=== PATIENT | female | born 1995 | race Caucasian/White ===

== ENCOUNTER 2017-01-19 13:30 | Emergency (ER) | payer OTHER ==
[~2017-01-19] VITALS: Ht 160 cm; Wt 49.8 kg
[~2017-01-19 13:30] MED LIST: PRLSR20 PO
[2017-01-19 13:35] VITALS: TEMP 36.9; Ht 160 cm; Wt 49.8 kg
[2017-01-19 14:36] LABS: BASO % 0.4 %; BASO ABS # 0.02 K/uL (0-0.2); COMPLETE YES; EOS % 1.8 %; HEMATOCRIT 40.8 % (37-47); IG% 0.2 %; LYMPH % 31.5 %; LYMPH ABS # 1.77 K/uL (1.2-3.4); MEAN CELL VOLUME 86.1 fL (80-100); MEAN CORPUSCULAR HEMOGLOBIN 29.7 pg (25-34); MEAN CORPUSCULAR HGB CONC 34.6 g/dl (32-36); MEAN PLATELET VOLUME 10.3 fL (7.4-10.4); MONO % 9.6 %; NEUT % 56.5 %; PLATELET COUNT 220 K/uL (130-400); RED BLOOD COUNT 4.74 M/uL (4.2-5.4); WHITE BLOOD COUNT 5.62 K/uL (4.8-10.8)
[2017-01-19] MEDS ORDERED: KETOROLAC TROMETHAMINE 30 MG/ML VIAL IV STA (14:44)
[2017-01-19 14:49] LABS: BUN/CREATININE RATIO 11.8 (10-20); CALCIUM 9.2 mg/dl (8.5-10.1); CREATININE 0.7 mg/dl (0.60-1.20); POTASSIUM 3.4 mmol/L (3.5-5.1)
[2017-01-19 14:52] LABS: ALB/GLOB RATIO 1.3 (0.9-2)
[2017-01-19 15:02] LABS: URINE APPEARANCE CLEAR (CLEAR); URINE BILIRUBIN NEG (NEG); URINE COLOR YELLOW; URINE NITRITE NEG (NEG); URINE PH 6.5 (4.5-7.5); URINE SPECIFIC GRAVITY 1.003 (1.000-1.030); UROBILINOGEN NEG (NEG); ZZUR CULT IF INDIC CLEAN CATCH NO
[2017-01-19 15:20] LABS: MANUAL MICROSCOPIC REQUIRED? NO; REVIEW REQ? NO
--- NOTE | 2017-01-19 16:21 | DIAGNOSTIC IMAGING REPORT ---
CT SCAN OF THE ABDOMEN AND PELVIS WITHOUT CONTRAST CLINICAL HISTORY: Left flank pain COMPARISON STUDY: No previous studies for comparison. TECHNIQUE: CT scan of the abdomen and pelvis was performed from the lung bases to the proximal femurs. Images are reviewed in the axial, sagittal, and coronal planes. IV contrast was not administered for this examination. CT DOSE: FINDINGS: Lower chest: The heart is normal in size and configuration, without pericardial effusion. The lung bases and pleural spaces are clear. Liver: The unenhanced liver is normal in size, contour, and attenuation. There is no intrahepatic biliary ductal dilatation. Gallbladder: Unremarkable. Spleen: Normal in size and attenuation. Pancreas: Unremarkable. Adrenal glands: Unremarkable. Kidneys: No renal, ureteral, or bladder calculi are visualized. Bowel: Evaluation the bowel is limited given the lack of intravenous and oral contrast and the relative possibility of intra-abdominal fat. There is mild fecal retention. There are no transition zones indicate bowel obstruction. There are no findings to indicate acute diverticulitis. There are no findings to indicate acute appendicitis. Peritoneum: There is no intraperitoneal free air or abdominal ascites. Vasculature: The abdominal aorta is normal in course and caliber. Adenopathy: None. Pelvic viscera: The bladder, and pelvic viscera are unremarkable. Skeletal structures: No destructive osseous lesions are seen. IMPRESSION: 1. No acute abdominal or pelvic findings. 2. No renal, ureteral, or bladder calculi identified. 3. No evidence of bowel obstruction. No evidence of free air Electronically signed by: Sampson Brown M.D. 01/19/2017 4:19 PM Dictated Date/Time: 01/19/2017 4:16 PM
--- NOTE | 2017-01-19 16:26 | DIAGNOSTIC IMAGING REPORT ---
CT LUMBAR SPINE WITHOUT CT DOSE: 356.20 mGy.cm CLINICAL HISTORY: Severe back pain. TECHNIQUE: Helical images were acquired in transverse plane. Reformatted sagittal and coronal images were reviewed. CONTRAST: No contrast was administered COMPARISON STUDY: Conventional radiographic study dated 05/11/2016 FINDINGS: L1-2 level: There is no evidence of significant disc bulge or focal herniation. There is no evidence of spinal or foraminal stenosis. L2-3 level: There is no evidence of significant disc bulge or focal herniation. There is no evidence of spinal or foraminal stenosis. L3-4 level: There is no evidence of significant disc bulge or focal herniation. There is no evidence of spinal or foraminal stenosis. L4-5 level: There is a mild circumferential disc bulge. There is mild spinal canal narrowing. L5-S1 level: There is no evidence of significant disc bulge or focal herniation. There is no evidence of spinal or foraminal stenosis. IMPRESSION: 1. No fractures or subluxations identified 2. No destructive lesions are visualized 3. Mild disc bulge at the L4-5 level with mild spinal canal narrowing Electronically signed by: Sampson Brown M.D. 01/19/2017 4:24 PM Dictated Date/Time: 01/19/2017 4:21 PM
[2017-01-19 17:15] VITALS: BP 128/77; PULSE 86; O2SAT 100
--- NOTE | 2017-01-19 19:19 | EMERGENCY ROOM VISIT NOTE ---
History Report prepared by Yunieribnataliia: Allyssa Valdovinos Under the Supervision of: Dr. Charles David M.D. First contact with patient: 14:34 Chief Complaint: ABDOMINAL PAIN Stated Complaint: ABDOMINAL PAIN AND LOSS OF BLADDER FUNCTION Nursing Triage Summary: Patient states is having 5/10 left sided flank pain. Patient has had back pain since Saturday that started as a muscle pain and became a sharp left flank pain at this time. Patient denies N/V/D. Patient has had not BM or void well for at least today. Patient states has been able to void in small amounts. Patient denies hx of kidney stones. Patient states gets pressure with urination, not painful. Patient states her appetite has decreased some. History of Present Illness The patient is a 21 year old female who presents to the Emergency Room with complaints of persistent left sided flank pain for the past day. She reports she started experiencing right back pain a few days ago, and it has since traveled into her left flank. She rates her discomfort as a 5/10 and describes the pain as sometimes "stabbing". Movement worsens her pain. 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 She denies any recent injuries or heavy lifting. She denies any fever, nausea, vomiting or diarrhea. She notes her last bowel movement was 2 days ago and states this is abnormal for her. She has been eating normally, but has not felt the need to move her bowels. She also complains of urinary symptoms stating she feels the need to empty her bladder, but she has "to really force the urine out" when she goes. She denies any gross hematuria. She denies any history of kidney stones. She is currently on her menstrual period and denies any abnormal vaginal discharge. The patient also complains of a feeling of "tingling" in both legs, mostly in her thigh area. She describes her legs as feeling like they "could go to sleep, but they're not quite there yet". She denies any loss of bladder or bowel function. She denies any numbness or tingling in her pelvic area. She has not noticed any changes in how she walks or moves. She can still feel normal sensation in both legs. Source of History: patient Onset: 1 day [employer] OFFIC[employer] Position: back (left sided flank) Symptom Intensity: 5/10 Quality: stabbing Timing: other (persistent) Modifying Factors (Worsening): movement Associated Symptoms: + numbness ("tingling" in bilateral legs), + urinary symptoms, No diarrhea, No fevers, No nausea, No vomiting Review of Systems See HPI for pertinent positives & negatives. A total of 10 systems reviewed and were otherwise negative. Past Medical & Surgical Medical Problems: (1) Ovarian cyst Family History No pertinent family history Social History Smoking Status: Current Every Day Smoker Alcohol Use: none Drug Use: none Marital Status: single Housing Status: lives with family Current/Historical Medications Scheduled Omeprazole (Prilosec), 20 MG PO DAILY Allergies Coded Allergies: Sulfa Antibiotics (Unverified Allergy, Unknown, rash, 06/26/16) Physical Exam Vital Signs Date Time Temp Pulse Resp B/P Pulse Ox O2 Delivery O2 Flow Rate FiO2 01/19/17 17:15 86 18 128/77 100 01/19/17 15:35 85 18 137/73 100 Room Air 01/19/17 13:35 36.9 90 20 119/79 98 Room Air Physical Exam Constitutional: Vital signs reviewed. Eyes: Pupils are equal round reactive to light. Conjunctiva are noninjected. ENT: Pharynx is clear without erythema or exudate. Mucous membranes are moist. Neck supple without meningeal signs. Respiratory: Clear to auscultation bilaterally. Breath sounds are equal bilaterally. Cardiovascular: Regular rate and rhythm. No rubs or gallops. GI: Soft, nondistended. Tenderness to the left flank. Bowel sounds are present. Musculoskeletal: No peripheral edema. No lower extremity tenderness. No CVA tenderness. No midline tenderness to the thoracic or lumbosacral spine. Negative straight leg raise bilaterally. Integumentary: No cyanosis. Neurological: The patient is awake and alert. No focal deficits. Normal motor and sensation to the legs bilaterally. DTR intact bilaterally in lower extremities. Normal proprioception in lower extremities. No saddle anaesthesia. Normal rectal tone. Psychiatric: Normal affect. Medical Decision & Procedures ER Provider Diagnostic Interpretation: These CT scans were reviewed and interpreted by the radiologist and reviewed by myself. CT SCAN OF THE ABDOMEN AND PELVIS WITHOUT CONTRAST CLINICAL HISTORY: Left flank pain COMPARISON STUDY: No previous studies for comparison. TECHNIQUE: CT scan of the abdomen and pelvis was performed from the lung bases to the proximal femurs. Images are reviewed in the axial, sagittal, and coronal planes. IV contrast was not administered for this examination. CT DOSE: FINDINGS: Lower chest: The heart is normal in size and configuration, without pericardial effusion. The lung bases and pleural spaces are clear. Liver: The unenhanced liver is normal in size, contour, and attenuation. There is no intrahepatic biliary ductal dilatation. Gallbladder: Unremarkable. Spleen: Normal in size and attenuation. Pancreas: Unremarkable. Adrenal glands: Unremarkable. Kidneys: No renal, ureteral, or bladder calculi are visualized. Bowel: Evaluation the bowel is limited given the lack of intravenous and oral contrast and the relative possibility of intra-abdominal fat. There is mild fecal retention. There are no transition zones indicate bowel obstruction. There are no findings to indicate acute diverticulitis. There are no findings to indicate acute appendicitis. Peritoneum: There is no intraperitoneal free air or abdominal ascites. Vasculature: The abdominal aorta is normal in course and caliber. Adenopathy: None. Pelvic viscera: The bladder, and pelvic viscera are unremarkable. Skeletal structures: No destructive osseous lesions are seen. IMPRESSION: 1. No acute abdominal or pelvic findings. 2. No renal, ureteral, or bladder calculi identified. 3. No evidence of bowel obstruction. No evidence of free air Electronically signed by: Sampson Brown M.D. 01/19/2017 4:[address] LUMBAR SPINE WITHOUT CT DOSE: 356.20 mGy.cm CLINICAL HISTORY: Severe back pain. TECHNIQUE: Helical images were acquired in transverse plane. Reformatted sagittal and coronal images were reviewed. CONTRAST: No contrast was administered COMPARISON STUDY: Conventional radiographic study dated 05/11/2016 FINDINGS: L1-2 level: There is no evidence of significant disc bulge or focal herniation. There is no evidence of spinal or foraminal stenosis. L2-3 level: There is no evidence of significant disc bulge or focal herniation. There is no evidence of spinal or foraminal stenosis. L3-4 level: There is no evidence of significant disc bulge or focal herniation. There is no evidence of spinal or foraminal stenosis. L4-5 level: There is a mild circumferential disc bulge. There is mild spinal canal narrowing. L5-S1 level: There is no evidence of significant disc bulge or focal herniation. There is no evidence of spinal or foraminal stenosis. IMPRESSION: 1. No fractures or subluxations identified 2. No destructive lesions are visualized 3. Mild disc bulge at the L4-5 level with mild spinal canal narrowing Electronically signed by: Sampson Brown M.D. 01/19/2017 4:24 PM Laboratory Results 01/19/17 14:20 Red Blood Count 4.74, Mean Corpuscular Volume 86.1, Mean Corpuscular Hemoglobin 29.7, Mean Corpuscular Hemoglobin Concent 34.6, Mean Platelet Volume 10.3, Neutrophils (%) (Auto) 56.5, Lymphocytes (%) (Auto) 31.5, Monocytes (%) (Auto) 9.6, Eosinophils (%) (Auto) 1.8, Basophils (%) (Auto) 0.4, Neutrophils # (Auto) 3.18, Lymphocytes # (Auto) 1.77, Monocytes # (Auto) 0.54, Eosinophils # (Auto) 0.10, Basophils # (Auto) 0.02 01/19/17 14:20 Test 01/19/17 14:10 01/19/17 14:20 Urine Color YELLOW Urine Appearance CLEAR (CLEAR) Urine pH 6.5 (4.5-7.5) Urine Specific [place] 1.003 (1.000-1.030) Urine Protein NEG (NEG) Urine Glucose (UA) NEG (NEG) Urine Ketones NEG (NEG) Urine Occult Blood 2+ (NEG) Urine Nitrite NEG (NEG) Urine Bilirubin NEG (NEG) Urine Urobilinogen NEG (NEG) Urine Leukocyte Esterase NEG (NEG) Urine WBC (Auto) 0 /hpf (0-5) Urine RBC (Auto) 0-4 /hpf (0-4) Urine Hyaline Casts (Auto) 0 /lpf (0-5) Urine Epithelial Cells (Auto) 5-10 /lpf (0-5) Urine Bacteria (Auto) NEG (NEG) Urine Test NEG (NEG) White Blood Count 5.62 K/uL (4.8-10.8) Red Blood Count 4.74 M/uL (4.2-5.4) Hemoglobin 14.1 g/dL (12.0-16.0) Hematocrit 40.8 % (37-47) Mean Corpuscular Volume 86.1 fL (80-100) Mean Corpuscular Hemoglobin 29.7 pg (25-34) Mean Corpuscular Hemoglobin Concent 34.6 g/dl (32-36) Platelet Count 220 K/uL (130-400) Mean Platelet Volume 10.3 fL (7.4-10.4) Neutrophils (%) (Auto) 56.5 % Lymphocytes (%) (Auto) 31.5 % Monocytes (%) (Auto) 9.6 % Eosinophils (%) (Auto) 1.8 % Basophils (%) (Auto) 0.4 % Neutrophils # (Auto) 3.18 K/uL (1.4-6.5) Lymphocytes # (Auto) 1.77 K/uL (1.2-3.4) Monocytes # (Auto) 0.54 K/uL (0.11-0.59) Eosinophils # (Auto) 0.10 K/uL (0-0.5) Basophils # (Auto) 0.02 K/uL (0-0.2) RDW Standard Deviation 41.7 fL (36.4-46.3) RDW Coefficient of Variation 13.2 % (11.5-14.5) Immature Granulocyte % (Auto) 0.2 % Immature Granulocyte # (Auto) 0.01 K/uL (0.00-0.02) Anion Gap 5.0 mmol/L (3-11) Est Creatinine Clear Calc Drug Dose 101.6 ml/min Estimated GFR () 145.6 Estimated GFR (Non- 125.6 BUN/Creatinine Ratio 11.8 (10-20) Calcium Level 9.2 mg/dl (8.5-10.1) Total Bilirubin 0.3 mg/dl (0.2-1) Aspartate Amino Transf (AST/SGOT) 14 U/L (15-37) Alanine Aminotransferase (ALT/SGPT) 21 U/L (12-78) Alkaline Phosphatase 72 U/L (45-117) Total Protein 8.1 gm/dl (6.4-8.2) Albumin 4.5 gm/dl (3.4-5.0) Globulin 3.6 gm/dl (2.5-4.0) Albumin/Globulin Ratio 1.3 (0.9-2) Lipase 143 U/L (73-393) Laboratory results as reviewed by me. Medications Administered Medications (Trade) Dose Ordered Sig/Jose R Route Start Time Stop Time Status Last Admin Dose Admin Ketorolac Tromethamine (Toradol Inj) 10 mg NOW STAT IV 01/19/17 14:44 01/19/17 14:45 DC 01/19/17 15:02 10 MG ED Course 1435: The patient was evaluated in room C7. A complete history and physical exam was performed. 1444: Toradol 10 mg IV. 1645: I reevaluated the patient. I discussed her test results in detail with her. She verbalized complete understanding and agreement. Medical Decision This is a 21-year-old female presents with back and flank pain. Differential diagnosis includes lumbar disc disease, radiculopathy, spinal stenosis, kidney stone, pyelonephritis, cauda equina syndrome. I did perform a limited focused review of portions of the patient's old chart on the electronic medical record. The patient has had no recent pertinent visits to this hospital. I did evaluate the patient as noted above. Patient is presenting with low back pain which now radiates into her left flank. She states it is worse with movement. She is neurologically intact. She did have some problems urinating but I did a bladder scan and she had no urinary retention. She has no signs of cauda equina syndrome on her examination. IV access was established. I did treat patient with Toradol IV. I did order and personally review the patient's urinalysis as described above. There is hematuria but no signs of infection. I did order and review the patient's blood work as noted in the electronic medical record. Her white blood cell count is not elevated. I did order a CT of the abdomen and pelvis and lumbar spine. I did review the images myself as well as the radiology report as described above. She has no acute intra- abdominal process. She does have lumbar disc disease with disc bulging at L4- L5. I did reassess the patient. She states she is feeling better. I did discuss the test results with her and her family. I did recommend close follow with her physician for further evaluation. She was given return instructions as outlined below. She was given a work note and she will take anti- inflammatories at home. She was discharged in good condition. Impression Primary Impression: Low back pain Additional Impression: Lumbar disc disease Scribe Attestation The scribe's documentation has been prepared under my direct and personally reviewed by me in its entirety. I confirm that the note above accurately reflects all work, treatment, procedures, and medical decision making performed by me. Departure Information Dispostion Home / Self-Care Referrals Sam Burleson III, M.D. (PCP) Patient Instructions ED Flank Pain Uncertain Cause, Lumbar Pain Causes, [facility] Additional Instructions You have been examined and treated today on an emergency basis only. This is not a substitute for, or an effort to provide, complete comprehensive medical care. It is impossible to recognize and treat all injuries or illnesses in a single emergency department visit. It is therefore important that you follow up closely with your physician. Call as soon as possible for an appointment. Return for worsening symptoms or if you develop fever, vomiting, abdominal pain , loss of control of your bowel or bladder, numbness or weakness to your legs, numbness to your private area, difficulty urinating, or any other concerning symptoms. Problem Qualifiers Primary Impression: Low back pain Chronicity: acute Back pain laterality: bilateral Sciatica presence: unspecified whether sciatica present Qualified Codes: M54.5 - Low back pain
== END 2017-01-19 17:16 | disposition home or self-care (01) ==
LOC: C.EDB 13:31 → C.EDC 17:16
DX: M54.5 Low back pain (principal); M51.06 Intervertebral disc disorders with myelopathy, lumbar region; N83.209 Unspecified ovarian cyst, unspecified side; F17.200 Nicotine dependence, unspecified, uncomplicated; Z88.2 Allergy status to sulfonamides